=== PATIENT | male | born 1970 | race Caucasian/White ===

== ENCOUNTER 2022-08-11 16:33 | Emergency (ER) | payer OTHER ==
[~2022-08-11] VITALS: Ht 177.8 cm; Wt 117.9 kg
[2022-08-11 17:55] VITALS: BP 144/82
--- NOTE | 2022-08-11 18:19 | NUR ---
PA able to removed foreign body in the ear.
== END 2022-08-11 18:42 | disposition home or self-care (01) ==
LOC: ER 16:41
DX: T16.1XXA Foreign body in right ear, initial encounter (principal); F20.9 Schizophrenia, unspecified; X58.XXXA Exposure to other specified factors, initial encounter; Y93.89 Activity, other specified; Y92.89 Other specified places as the place of occurrence of the external cause; Y99.8 Other external cause status